=== PATIENT | female | born 1990 | race American Indian/Alaskan Native ===

== ENCOUNTER 2016-10-31 15:34 | Emergency (ER) | payer SELFPAY ==
[2016-10-31 16:17] VITALS: BP 135/92
--- NOTE | 2016-10-31 21:26 | Emergency Department Report ---
ED General Adult HPI - General Chief complaint: Urogenital-Female Stated complaint: VAGINAL PAIN Time Seen by Provider: 10/31/16 19:50 Source: patient Mode of arrival: Ambulatory Limitations: No Limitations - History of Present Illness Initial comments: PT c/o bump to vagina that she noticed today. PT states she has had an intermittent pain to the right side of her vagina x 1 week. PT states she shaved 1 week ago and has had previous ingrown hairs but none in this location. PT states the bump is on the R side of her vagina. PT states she is not concerned for STD. MD Complaint: abscess Onset/Timin -: Gradual, week(s) Location: genitals Quality: other (tender ) Consistency: constant Improves with: none Worsens with: other (palpation ) Associated Symptoms: denies: fever/chills - Related Data Previous Rx's Medication Instructions Recorded Last Taken Type Cephalexin [Keflex] 500 mg PO Q6HR #28 capsule 10/31/16 Unknown Rx Sulfamethoxazole/Trimethoprim 1 each PO BID #14 tablet 10/31/16 Unknown Rx [Bactrim DS TAB] traMADol [Ultram] 50 mg PO Q6HR PRN #12 tablet 10/31/16 Unknown Rx Allergies Allergy/AdvReac Type Severity Reaction Status Date / Time ibuprofen [From Motrin] Allergy Swelling Verified 02/29/16 18:07 aspirin AdvReac Swelling Verified 02/29/16 18:07 ED Review of Systems ROS: Stated complaint: VAGINAL PAIN Other details as noted in HPI Comment: All other systems reviewed and negative Constitutional: denies: chills, fever Gastrointestinal: nausea. denies: abdominal pain, vomiting Genitourinary: denies: dysuria, hematuria, discharge, abnormal menses Skin: other (lump near vagina ) ED Past Medical Hx - Past Medical History Previous Medical History?: No Additional medical history: Miscarriage x 2 - Surgical History Past Surgical History?: No - Social History Smoking Status: Current Every Day Smoker Substance Use Type: None - Medications Home Medications: Home Medications Medication Instructions Recorded Confirmed Last Taken Type Cephalexin [Keflex] 500 mg PO Q6HR #28 capsule 10/31/16 Unknown Rx Sulfamethoxazole/Trimethoprim 1 each PO BID #14 tablet 10/31/16 Unknown Rx [Bactrim DS TAB] traMADol [Ultram] 50 mg PO Q6HR PRN #12 tablet 10/31/16 Unknown Rx ED Physical Exam - General Limitations: No Limitations General appearance: alert, in no apparent distress - Head Head exam: Present: atraumatic, normocephalic - Eye Eye exam: Present: normal appearance. Absent: conjunctival injection - ENT ENT exam: Present: normal exam, normal external ear exam - Neck Neck exam: Present: normal inspection, full ROM - Respiratory Respiratory exam: Present: normal lung sounds bilaterally. Absent: respiratory distress - Cardiovascular Cardiovascular Exam: Present: regular rate, normal rhythm - GI/Abdominal GI/Abdominal exam: Present: soft, normal bowel sounds. Absent: tenderness - External exam: Present: swelling, other (female RN at bedside. PT has small firm abscess to R exteral genitalia. less than 1 cm. Possible mild enlargement of bartholin's gland on R side, however, site is not tender.). Absent: lesions - Extremities Exam Extremities exam: Present: normal inspection, full ROM - Back Exam Back exam: Present: normal inspection, full ROM. Absent: tenderness, CVA tenderness (R), CVA tenderness (L), muscle spasm - Neurological Exam Neurological exam: Present: alert, oriented X3 - Psychiatric Psychiatric exam: Present: normal affect, normal mood - Skin Skin exam: Present: warm, dry, intact, normal color ED Course Vital Signs 10/31/16 16:14 Temperature 98.3 F Pulse Rate 75 Respiratory 18 Rate Blood Pressure 135/92 O2 Sat by Pulse 100 Oximetry - Reevaluation(s) Reevaluation #1: 10/31/16 21:28 PT aware that abscess is not ready for drainage. PT given strict home care instructions. PT verbalizes understanding. - Pulse Oximetry Interpretation Digit-Finger Initial Pulse Oximetry Readin Actions Taken: none ED Medical Decision Making - Differential Diagnosis cyst, abscess Critical care attestation.: If time is entered above; I have spent that time in minutes in the direct care of this critically ill patient, excluding procedure time. ED Disposition Clinical Impression: Abscess Disposition: DISCHARGED TO HOME OR SELFCARE Is pt being admited?: No Does the pt Need Aspirin: No Condition: Stable Instructions: Abscess (ED), Bartholin Cyst (ED) Additional Instructions: Warm compresses Return in 2 days for recheck No driving or ETOH if you are needing to take Ultram for your pain Prescriptions: Cephalexin [Keflex] 500 mg PO Q6HR #28 capsule Sulfamethoxazole/Trimethoprim [Bactrim DS TAB] 1 each PO BID #14 tablet traMADol [Ultram] 50 mg PO Q6HR PRN #12 tablet PRN Reason: Pain Referrals: PRIMARY CARE,MD [Primary Care Provider] - 3-5 Days Forms: Work/School Release Form(ED) Time of Disposition: 21:29
== END 2016-10-31 21:35 | disposition home or self-care (01) ==
LOC: ED 15:34
DX: N76.0 Acute vaginitis (principal); F17.200 Nicotine dependence, unspecified, uncomplicated
CPT/HCPCS: 99282

== ENCOUNTER 2017-01-16 08:58 | Emergency (ER) | payer SELFPAY ==
[2017-01-16 09:11] VITALS: BP 142/86
[2017-01-16 09:47] LABS: Basophils % (Auto) 0.8 % (0.0-1.8); Eosinophils % (Auto) 9.5 % (0.0-4.3); Hematocrit 37.3 % (30.3-42.9); Hemoglobin 12.5 gm/dl (10.1-14.3); Mean Corpuscular HGB Conc 34 % (30-34); Mean Corpuscular Hemoglobin 28 pg (28-32); Mean Corpuscular Volume 84 fl (79-97); Platelet Count 265 K/mm3 (140-440); Red Blood Count 4.42 M/mm3 (3.65-5.03); Red Cell Distribution Width 13.8 % (13.2-15.2); White Blood Count 5.7 K/mm3 (4.5-11.0)
[2017-01-16 09:59] LABS: Bilirubin,Urine NEG (Negative); Blood,Urine NEG (Negative); Ketones,Urine NEG (Negative); Leukocyte Esterase,Urine NEG (Negative); Mucus,Urine FEW /HPF; Nitrite,Urine NEG (Negative); Protein,Urine <15 mg/dL mg/dL (Negative); RBC,Urine < 1.0 /HPF (0.0-6.0); Urobilinogen,Urine < 2.0 mg/dL (<2.0); WBC,Urine < 1.0 /HPF (0.0-6.0)
--- NOTE | 2017-01-16 11:24 | Ultrasound Report ---
Pelvic and transvaginal sonography: History: Lower pelvic pain. . Findings: Uterus measures 8.8 x 4.3 x 4 cm. Endometrial thickness 12 mm. No intrauterine gestation. Right ovary 2.6 x 1.7 x 2.5 cm. Cyst in the right ovary measures 1.7 cm. Left ovary 2 x 1.1 x 2 cm. No mass. There is free fluid noted in the cul-de-sac. Impression: No intrauterine gestation. Findings as detailed above.
== END 2017-01-16 15:51 | disposition left against medical advice (07) ==
LOC: ED 08:58
DX: R10.2 Pelvic and perineal pain (principal); Z53.21 Procedure and treatment not carried out due to patient leaving prior to being seen by health care provider
CPT/HCPCS: 36415; 76801; 76817; 81001; 84702; 85025

== ENCOUNTER 2017-06-12 05:22 | Emergency (ER) | payer SELFPAY ==
[2017-06-12 05:33] VITALS: BP 136/89
[2017-06-12] MEDS ORDERED: ZOFRAN IM ONE (05:35)
[2017-06-12 06:12] LABS: Hematocrit 41.4 % (30.3-42.9); Hemoglobin 13.6 gm/dl (10.1-14.3); Mean Corpuscular HGB Conc 33 % (30-34); Mean Corpuscular Hemoglobin 28 pg (28-32); Mean Corpuscular Volume 85 fl (79-97); Platelet Count 288 K/mm3 (140-440); Red Cell Distribution Width 13.4 % (13.2-15.2); White Blood Count 7.4 K/mm3 (4.5-11.0)
[2017-06-12 06:33] LABS: Basophils % (Auto) 0.2 % (0.0-1.8); Diff Status Complete
[2017-06-12 06:46] LABS: Alanine Aminotransferase 10 units/L (7-56); Albumin 4.4 g/dL (3.9-5); Albumin/Globulin Ratio 1.3 %; Alkaline Phosphatase 54 units/L (35-129); Anion Gap 18 mmol/L; BUN/Creatinine Ratio 14; Blood Urea Nitrogen 10 mg/dL (7-17); Calcium 9.2 mg/dL (8.4-10.2); Carbon Dioxide 24 mmol/L (22-30); Chloride 101.9 mmol/L (98-107); Glucose 109 mg/dL (65-100); Lipase 20 units/L (13-60); Sodium 140 mmol/L (137-145); Total Protein 7.7 g/dL (6.3-8.2)
[2017-06-12 06:53] LABS: Bacteria,Urine 1+ /HPF (Negative); Bilirubin,Urine NEG (Negative); Blood,Urine LG (Negative); Ketones,Urine TR mg/dL (Negative); Leukocyte Esterase,Urine NEG (Negative); Mucus,Urine 2+ /HPF; Nitrite,Urine NEG (Negative); Urobilinogen,Urine < 2.0 mg/dL (<2.0)
== END 2017-06-12 06:00 | disposition left against medical advice (07) ==
LOC: ED 05:22
DX: R11.2 Nausea with vomiting, unspecified (principal); Z53.21 Procedure and treatment not carried out due to patient leaving prior to being seen by health care provider
CPT/HCPCS: 36415; 80053; 81001; 83690; 84703; 85025; J2405

== ENCOUNTER 2017-10-14 17:46 | Emergency (ER) | payer OTHER ==
[2017-10-14 18:05] VITALS: BP 143/88
--- NOTE | 2017-10-14 21:19 | Emergency Department Report ---
ED Shortness of Breath HPI - General Chief Complaint: Dyspnea/Respdistress Stated Complaint: CHEST TIGHTNESS Time Seen by Provider: 10/14/17 20:51 Source: patient Mode of arrival: Ambulatory Limitations: No Limitations - History of Present Illness Initial Comments: Patient is a 27-year-old female who is presenting with shortness of breath. Patient states last night she couldn't sleep because she was feeling short of breath with palpitations. Patient did not check her pulse at that time. Patient states she has a very mild shortness of breath currently symptoms are starting to subside. Patient denies any cough or fevers nausea vomiting GERD symptoms diarrhea chest pain at this time. Patient states she does have a history of anxiety. - Related Data Previous Rx's Medication Instructions Recorded Last Taken Type Amoxicillin/K Clav Tab [Augmentin 1 tab PO Q12HR #20 tab 05/26/17 Unknown Rx 875 mg] ALPRAZolam [Xanax TAB] 0.25 mg PO BID PRN #6 tab 10/14/17 Unknown Rx Allergies Allergy/AdvReac Type Severity Reaction Status Date / Time ibuprofen [From Motrin] Allergy Swelling Verified 01/16/17 09:04 aspirin AdvReac Swelling Verified 01/16/17 09:04 ED Review of Systems ROS: Stated complaint: CHEST TIGHTNESS Other details as noted in HPI Comment: All other systems reviewed and negative ED Past Medical Hx - Past Medical History Previous Medical History?: Yes Additional medical history: Miscarriage x 2 - Surgical History Past Surgical History?: Yes Additional Surgical History: ectopic - Social History Smoking Status: Current Every Day Smoker Substance Use Type: Alcohol, Non Opiate Pain - Medications Home Medications: Home Medications Medication Instructions Recorded Confirmed Last Taken Type Amoxicillin/K Clav Tab [Augmentin 1 tab PO Q12HR #20 tab 05/26/17 Unknown Rx 875 mg] ALPRAZolam [Xanax TAB] 0.25 mg PO BID PRN #6 tab 10/14/17 Unknown Rx ED Physical Exam - General Limitations: No Limitations General appearance: alert, in no apparent distress - Head Head exam: Present: atraumatic, normocephalic - Eye Eye exam: Present: normal appearance - ENT ENT exam: Present: mucous membranes moist - Neck Neck exam: Present: normal inspection - Respiratory Respiratory exam: Present: normal lung sounds bilaterally. Absent: respiratory distress, wheezes, rales, rhonchi - Cardiovascular Cardiovascular Exam: Present: regular rate, normal rhythm. Absent: systolic murmur, diastolic murmur, rubs, gallop - GI/Abdominal GI/Abdominal exam: Present: soft, normal bowel sounds. Absent: distended, tenderness, guarding, rebound - Extremities Exam Extremities exam: Present: normal inspection - Back Exam Back exam: Present: normal inspection - Neurological Exam Neurological exam: Present: alert, oriented X3 - Psychiatric Psychiatric exam: Present: normal affect, normal mood - Skin Skin exam: Present: warm, dry, intact, normal color. Absent: rash ED Course Vital Signs 10/14/17 17:58 Temperature 99.2 F Pulse Rate 86 Respiratory 18 Rate Blood Pressure 143/88 O2 Sat by Pulse 100 Oximetry ED Medical Decision Making - EKG Data -: EKG Interpreted by Me EKG shows normal: sinus rhythm, axis, intervals, QRS complexes, ST-T waves Rate: normal - EKG Data Interpretation: normal EKG - Medical Decision Making Patient is a 27-year-old Female who states that she was having palpitations shortness of breath last night. Patient will do believe is having a mild anxiety attack. Patient states she was up all night and couldn't sleep. Patient's EKG is very normal and patient will be discharged home at this time with a couple pills of Xanax. Critical care attestation.: If time is entered above; I have spent that time in minutes in the direct care of this critically ill patient, excluding procedure time. ED Disposition Clinical Impression: Anxiety reaction Disposition: DC-01 TO HOME OR SELFCARE Is pt being admited?: No Does the pt Need Aspirin: No Condition: Stable Prescriptions: ALPRAZolam [Xanax TAB] 0.25 mg PO BID PRN #6 tab PRN Reason: Anxiety Referrals: PRIMARY CARE, [Primary Care Provider] - 3-5 Days
== END 2017-10-14 21:23 | disposition home or self-care (01) ==
LOC: ED 17:46
DX: F41.9 Anxiety disorder, unspecified (principal); F17.200 Nicotine dependence, unspecified, uncomplicated
CPT/HCPCS: 93005; 93010; 99282

== ENCOUNTER 2018-04-29 20:55 | Emergency (ER) | payer OTHER ==
[2018-04-29 21:28] LABS: Basophils # (Auto) 0.1 K/mm3 (0.0-0.1); Eosinophils # (Auto) 0.5 K/mm3 (0.0-0.4); Eosinophils % (Auto) 7.7 % (0.0-4.3); Hematocrit 37.9 % (30.3-42.9); Hemoglobin 13.2 gm/dl (10.1-14.3); Lymphocytes % (Auto) 29.2 % (13.4-35.0); Mean Corpuscular HGB Conc 35 % (30-34); Mean Corpuscular Hemoglobin 29 pg (28-32); Mean Corpuscular Volume 84 fl (79-97); Monocytes # (Auto) 0.5 K/mm3 (0.0-0.8); Monocytes % (Auto) 7.2 % (0.0-7.3); Platelet Count 277 K/mm3 (140-440); Red Blood Count 4.52 M/mm3 (3.65-5.03); Red Cell Distribution Width 13.5 % (13.2-15.2)
[2018-04-29 21:49] LABS: Alanine Aminotransferase 11 units/L (7-56); Albumin 4.3 g/dL (3.9-5); BUN/Creatinine Ratio 16; Blood Urea Nitrogen 11 mg/dL (7-17); Calcium 9.4 mg/dL (8.4-10.2); Hemolysis Index 4
[2018-04-29 22:12] LABS: Bilirubin,Urine NEG (Negative); Blood,Urine NEG (Negative); Color,Urine Yellow (Yellow); Mucus,Urine 3+ /HPF; Protein,Urine <15 mg/dL mg/dL (Negative); Urobilinogen,Urine < 2.0 mg/dL (<2.0)
[2018-04-30 04:35] VITALS: BP 127/84
[2018-04-30] MEDS ORDERED: ULTRAM PO ONE (04:52)
--- NOTE | 2018-04-30 05:56 | Emergency Department Report ---
HPI - General Chief Complaint: Abdominal Pain Time Seen by Provider: 04/30/18 04:51 - HPI HPI: The patient is a 27-year-old female who presents for evaluation of abdominal pain and back pain. The patient reports bilateral lower abdominal pain and back pain for the past 4 days. She states that her pain is currently mild in severity, crampy in quality, exacerbated with movement of the lower back. The patient denies fever, chills, night sweats, some to the abdomen and back, paresthesias, motor deficit in the legs, vomiting, diarrhea, blood in the stool , dark tarry stool, dysuria, hematuria, flank pain, genital discharge, inability to pass flatus. ED Past Medical Hx - Past Medical History Previous Medical History?: No Additional medical history: Miscarriage x 2 - Surgical History Past Surgical History?: Yes Additional Surgical History: ectopic - Social History Smoking Status: Current Every Day Smoker Substance Use Type: None - Medications Home Medications: Home Medications Medication Instructions Recorded Confirmed Last Taken Type Amoxicillin/K Clav Tab [Augmentin 1 tab PO Q12HR #20 tab 05/26/17 Unknown Rx 875 mg] ALPRAZolam [Xanax TAB] 0.25 mg PO BID PRN #6 tab 10/14/17 Unknown Rx HYDROcodone/APAP 5-325 [[place] 1 each PO Q6HR PRN #14 tablet 04/30/18 Unknown Rx 5/325] ED Review of Systems ROS: Stated complaint: ABDOMINAL PAIN/LOWER BACK PAIN Other details as noted in HPI Constitutional: denies: fever ENT: denies: throat or neck pain Respiratory: denies: cough, shortness of breath Cardiovascular: denies: chest pain Endocrine: denies unexplained weight loss or gain Gastrointestinal: reports: abdominal pain, nausea Genitourinary: denies: dysuria Musculoskeletal: reports back pain denies: leg swelling Skin: denies: rash Neurological: denies: headache Hematological/Lymphatic: denies: easy bleeding or easy bruising Psych: denies sadness or hopelessness Physical Exam - Physical Exam Vital Signs: Vital Signs 04/29/18 04/30/18 21:05 04:33 Temperature 99.3 F 98.1 F Pulse Rate 109 H 78 Respiratory 28 H 16 Rate Blood Pressure 142/90 Blood Pressure 127/84 [Left] O2 Sat by Pulse 95 100 Oximetry Physical Exam: General: well-nourished, well-developed, no acute distress Head: Normocephalic, atraumatic Eyes: normal sclera ENT: Mucous membranes are pale and dry Neck: No neck stiffness, no cervical adenopathy Respiratory: Breath sounds equal bilaterally, no wheezing, rales, or rhonchi Cardio: S1 and S2 present, no murmurs, rubs, gallops, capillary refill is delayed Abdomen: Normoactive bowel sounds, soft abdomen, no rigidity, no guarding or rebound tenderness Chest WALL/Back: No tenderness to palpation of the chest wall, no CVA tenderness with percussion Musc: No pitting edema Skin: No rash Neuro: no facial drooping, normal speech Psych: Normal affect ED Course Vital Signs 04/29/18 04/30/18 21:05 04:33 Temperature 99.3 F 98.1 F Pulse Rate 109 H 78 Respiratory 28 H 16 Rate Blood Pressure 142/90 Blood Pressure 127/84 [Left] O2 Sat by Pulse 95 100 Oximetry ED Medical Decision Making - Lab Data Result diagrams: 04/29/18 21:13 04/29/18 21:13 - Medical Decision Making The patient was seen and examined by myself. The patient is placed on a fishing game warden and continuous pulse ox. On initial evaluation, the patient was found to be in no distress. Evaluation orders are placed. The patient given a tablet Tramadol for pain. The patient declined IV normal saline fluid bolus for treatment of her dehydration. Lab results were non-concerning including WBC , hemoglobin, hematocrit, electrolytes, renal function, negative test , and urinalysis. The patient was reevaluated and reported that their symptoms were markedly improved. The patient is stable for discharge with outpatient follow-up. The patient is given follow-up and return instructions. The patient expressed understanding and agreed with the plan. The patient is discharged in stable condition. Critical care attestation.: If time is entered above; I have spent that time in minutes in the direct care of this critically ill patient, excluding procedure time. ED Disposition Clinical Impression: Acute bilateral low back pain without sciatica, Acute bilateral lower abdominal pain Disposition: TO HOME OR SELFCARE Is pt being admited?: No Does the pt Need Aspirin: No Condition: Stable Instructions: Abdominal Pain (ED), Acute Low Back Pain (ED), Low Back Strain ( ED) Referrals: PRIMARY CARE, [Primary Care Provider] - 3-5 Days [facility] [Outside] - 3-5 Days Time of Disposition: 05:38
== END 2018-04-30 05:50 | disposition home or self-care (01) ==
LOC: ED 20:55
DX: M54.5 Low back pain (principal); R10.31 Right lower quadrant pain; R10.32 Left lower quadrant pain; F17.200 Nicotine dependence, unspecified, uncomplicated; Z88.6 Allergy status to analgesic agent
CPT/HCPCS: 36415; 80053; 81001; 84703; 85025; 99284

== ENCOUNTER 2018-09-28 22:49 | Emergency (ER) | payer MEDICAID, OTHER ==
[2018-09-29 00:15] VITALS: BP 139/80
[2018-09-29 02:24] LABS: Bilirubin,Urine Negative (Negative); Color,Urine Yellow (Yellow)
[2018-09-29 02:25] LABS: Blood,Urine Negative (Negative); Mucus,Urine Few /HPF; Protein,Urine <15 mg/dL mg/dL (Negative); Urobilinogen,Urine < 0.2 mg/dL (<2.0)
[2018-09-29] MEDS ORDERED: TYLENOL PO ONE (02:30)
--- NOTE | 2018-09-29 03:22 | Emergency Department Report ---
ED Female HPI - General Chief complaint: Back Pain/Injury Stated complaint: LOWER BACK PAIN EARLY PREGNACY Time Seen by Provider: 09/29/18 02:29 Source: patient Mode of arrival: Ambulatory Limitations: No Limitations - History of Present Illness Initial comments: Patient was 28-year-old emergency room female who presents for urinary frequency urgency. LMP 08/03/2018, had pos home test there is no vaginal bleeding no discharge no cramping, no fever chills, Complaint: dysuria Onset/Timin -: week(s) Radiation: L flank, R flank Severity: moderate Severity scale (0 -10): 4 Quality: aching Consistency: intermittent Improves with: none Worsens with: none, urination Are you Now?: Yes Last Menstrual Period: 08/03/18 EDC: 05/10/19 Associated Symptoms: denies other symptoms, dysuria - Related Data Sexually active: Yes : 2 Para: 0 A: 2 (misscarriage ) Previous Rx's Medication Instructions Recorded Last Taken Type Amoxicillin/K Clav Tab [Augmentin 1 tab PO Q12HR #20 tab 05/26/17 Unknown Rx 875 mg] ALPRAZolam [Xanax TAB] 0.25 mg PO BID PRN #6 tab 10/14/17 Unknown Rx HYDROcodone/APAP 5-325 [[place] 1 each PO Q6HR PRN #14 tablet 04/30/18 Unknown Rx 5/325] Acetaminophen [Tylenol] 650 mg PO QID PRN #30 capsule 09/29/18 Unknown Rx Nitrofurantoin [place]/M-Cryst 100 mg PO Q12HR 7 Days #14 capsule 09/29/18 Unknown Rx [Macrobid CAP] Allergies Allergy/AdvReac Type Severity Reaction Status Date / Time ibuprofen [From Motrin] Allergy Swelling Verified 01/16/17 09:04 aspirin AdvReac Swelling Verified 01/16/17 09:04 ED Review of Systems ROS: Stated complaint: LOWER BACK PAIN EARLY PREGNACY Other details as noted in HPI Constitutional: denies: chills, fever Eyes: denies: eye pain, eye discharge, vision change ENT: denies: ear pain, throat pain Respiratory: denies: cough, shortness of breath, wheezing Cardiovascular: denies: chest pain, palpitations Endocrine: no symptoms reported Gastrointestinal: denies: abdominal pain, nausea, vomiting, diarrhea Genitourinary: urgency, dysuria, frequency. denies: hematuria, discharge, abnormal menses, dyspareunia Musculoskeletal: back pain Skin: denies: rash, lesions Neurological: denies: headache, weakness, paresthesias Psychiatric: denies: anxiety, depression Hematological/Lymphatic: denies: easy bleeding, easy bruising ED Past Medical Hx - Past Medical History Previous Medical History?: No Additional medical history: Miscarriage x 2 - Surgical History Past Surgical History?: Yes Additional Surgical History: ectopic - Social History Smoking Status: Former Smoker Substance Use Type: None - Medications Home Medications: Home Medications Medication Instructions Recorded Confirmed Last Taken Type Amoxicillin/K Clav Tab [Augmentin 1 tab PO Q12HR #20 tab 05/26/17 Unknown Rx 875 mg] ALPRAZolam [Xanax TAB] 0.25 mg PO BID PRN #6 tab 10/14/17 Unknown Rx HYDROcodone/APAP 5-325 [[place] 1 each PO Q6HR PRN #14 tablet 04/30/18 Unknown Rx 5/325] Acetaminophen [Tylenol] 650 mg PO QID PRN #30 capsule 09/29/18 Unknown Rx Nitrofurantoin [place]/M-Cryst 100 mg PO Q12HR 7 Days #14 capsule 09/29/18 Unknown Rx [Macrobid CAP] ED Physical Exam - General Limitations: No Limitations General appearance: alert, in no apparent distress - Head Head exam: Present: atraumatic, normocephalic - Eye Eye exam: Present: normal appearance, PERRL, EOMI Pupils: Present: normal accommodation - ENT ENT exam: Present: normal orophraynx, mucous membranes moist - Neck Neck exam: Present: normal inspection, full ROM - Respiratory Respiratory exam: Present: normal lung sounds bilaterally. Absent: respiratory distress, wheezes, stridor - Cardiovascular Cardiovascular Exam: Present: regular rate, normal rhythm, normal heart sounds. Absent: systolic murmur, diastolic murmur, rubs, gallop - GI/Abdominal GI/Abdominal exam: Present: soft, normal bowel sounds. Absent: tenderness, bruit, hernia - Rectal Rectal exam: Present: deferred - Extremities Exam Extremities exam: Present: normal inspection, full ROM, normal capillary refill. Absent: tenderness - Back Exam Back exam: Present: normal inspection, full ROM. Absent: tenderness, CVA tenderness (R), CVA tenderness (L), muscle spasm, rash noted - Neurological Exam Neurological exam: Present: alert, oriented X3, CN II-XII intact, normal gait - Psychiatric Psychiatric exam: Present: normal affect, normal mood - Skin Skin exam: Present: warm, dry, intact, normal color. Absent: rash ED Course Vital Signs 09/29/18 00:12 Temperature 98.9 F Pulse Rate 79 Respiratory 18 Rate Blood Pressure 139/80 O2 Sat by Pulse 97 Oximetry ED Medical Decision Making - Lab Data Labs 09/29/18 09/29/18 01:14 02:51 HCG, Quant 3051 H Urine Color Yellow Urine Turbidity Clear Urine pH 6.0 Ur Specific [place] 1.016 Urine Protein <15 mg/dl Urine Glucose (UA) Negative Urine Ketones Negative Urine Blood Negative Urine Nitrite Negative Urine Bilirubin Negative Urine Urobilinogen < 0.2 Ur Leukocyte Esterase Negative Urine WBC (Auto) 1.0 Urine RBC (Auto) 1.0 U Epithel Cells (Auto) 1.0 Urine Mucus Few Critical care attestation.: If time is entered above; I have spent that time in minutes in the direct care of this critically ill patient, excluding procedure time. ED Disposition Clinical Impression: Urinary frequency Qualifiers: Weeks of gestation: 8 weeks Qualified Code(s): Z3A.08 - 8 weeks gestation of Disposition: -01 TO HOME OR SELFCARE Is pt being admited?: No Does the pt Need Aspirin: No Condition: Stable Instructions: (ED), Dysuria (ED) Prescriptions: Acetaminophen [Tylenol] 650 mg PO QID PRN #30 capsule PRN Reason: pain Nitrofurantoin [place]/M-Cryst [Macrobid CAP] 100 mg PO Q12HR 7 Days #14 capsule Referrals: ARIANA JESSICA MD [Staff Physician] - 3-5 Days Forms: Work/School Release Form(ED) Time of Disposition: 07:00
--- NOTE | 2018-09-29 07:32 | Ultrasound Report ---
PROCEDURE: US COMPLETE TRANSABDOMINAL < 14 WEEKS TECHNIQUE: Real-time transabdominal sonography of the uterus, placenta, amniotic fluid, adnexa, and fetus was performed with image documentation. Measurements were obtained to determine age/size. M-mode Doppler was used to document heartbeat. ADDITIONAL GESTATION: None. HISTORY: back pain pos preg COMPARISONS: None . FINDINGS: There is a probable early normal intrauterine gestation. There is a saclike structure measuring 4.6 m m corresponding to an estimated gestational age of 5 weeks 2 days. There is a yolk sac. There is no f etal pole. Placenta: Normal Amniotic fluid: Appropriate for gestational age. Cervix: Normal. Right Ovary: There is a 2.4 cm complex cyst. . Left Ovary: Normal . Estimated delivery date: 05/30/2019 . Uterus and adnexa: Normal. IMPRESSION: Early intrauterine gestation at 5 weeks and 2 days. At this time no pole or cardiac activity is identified. This document is electronically signed by Armand Laboy MD., September 29 2018 05:32:02 AM ET
--- NOTE | 2018-09-29 07:32 | Ultrasound Report ---
PROCEDURE: US COMPLETE TRANSABDOMINAL < 14 WEEKS TECHNIQUE: Real-time transvaginal sonography of the uterus, placenta, amniotic fluid, adnexa, and fe tus was performed with image documentation. Measurements were obtained to determine age/size. ADDITIONAL GESTATION: None. HISTORY: back pain pos preg COMPARISONS: None . FINDINGS: There is a probable early normal intrauterine gestation. There is a saclike structure measuring 4.6 m m corresponding to an estimated gestational age of 5 weeks 2 days. There is a yolk sac. There is no f etal pole. Placenta: Normal Amniotic fluid: Appropriate for gestational age. Cervix: Normal. Right Ovary: There is a 2.4 cm complex cyst. . Left Ovary: Normal . Estimated delivery date: 05/30/2019 . Uterus and adnexa: Normal. IMPRESSION: Early intrauterine gestation at 5 weeks and 2 days. At this time no pole or cardiac activity is identified. This document is electronically signed by Armand Laboy MD., September 29 2018 05:32:45 AM ET
== END 2018-09-29 05:30 | disposition home or self-care (01) ==
LOC: ED 22:49
DX: O23.41 Unspecified infection of urinary tract in pregnancy, first trimester (principal); Z3A.08 8 weeks gestation of pregnancy; Z88.5 Allergy status to narcotic agent; Z88.6 Allergy status to analgesic agent; Z87.891 Personal history of nicotine dependence
CPT/HCPCS: 36415; 76801; 76817; 81001; 84702; 99284

== ENCOUNTER 2018-11-23 05:33 | Emergency (ER) | payer MEDICAID ==
[2018-11-23 06:10] LABS: Basophils % (Auto) 0.3 % (0.0-1.8); Eosinophils # (Auto) 0.4 K/mm3 (0.0-0.4); Eosinophils % (Auto) 4.5 % (0.0-4.3); Hematocrit 36.8 % (30.3-42.9); Hemoglobin 12.3 gm/dl (10.1-14.3); Lymphocytes # (Auto) 1.4 K/mm3 (1.2-5.4); Lymphocytes % (Auto) 16.5 % (13.4-35.0); Mean Corpuscular HGB Conc 34 % (30-34); Mean Corpuscular Volume 86 fl (79-97); Monocytes # (Auto) 0.7 K/mm3 (0.0-0.8); Monocytes % (Auto) 8.1 % (0.0-7.3); Platelet Count 260 K/mm3 (140-440); Red Blood Count 4.29 M/mm3 (3.65-5.03); Red Cell Distribution Width 14.9 % (13.2-15.2)
[2018-11-23 06:13] LABS: Bilirubin,Urine NEG (Negative); Blood,Urine NEG (Negative); Color,Urine Yellow (Yellow); Hyaline Casts,Urine 1 /LPF; Mucus,Urine 1+ /HPF; Protein,Urine <15 mg/dL mg/dL (Negative); Urobilinogen,Urine < 2.0 mg/dL (<2.0)
[2018-11-23] MEDS ORDERED: TYLENOL PO ONE (07:31)
--- NOTE | 2018-11-23 07:56 | Emergency Department Report ---
ED HPI - General Chief complaint: Back Pain/Injury Stated complaint: BACK PAINS Time Seen by Provider: 11/23/18 07:00 Source: patient Mode of arrival: Ambulatory Limitations: No Limitations - History of Present Illness Initial comments: 28 YO OBESE FEMALE [id number] HERE WITH BACK PAIN PAIN IS BILATERAL NO VAG BLEED OR DC NO FEVER AMBULATORY AND NONTOXIC TAKING PO HAS HAD OBGYN CARE AND SEEN IN ER -: Gradual, week(s) Location: other Radiation: back Severity: mild Quality: aching Consistency: intermittent Improves with: rest Worsens with: movement Associated symptoms: denies other symptoms. denies: nausea/vomiting, vaginal bleeding, vaginal discharge, abdominal pain, dysuria, headache, vision changes, malaise, dysparuenia, rash, seizure, shortness of breath, syncope, weakness Vaginal bleeding: none :: Yes Number of weeks : 13 OB History - Previous Pregnancies: miscarriage, other (ECTOPIC) - Related Data : 3 Para: 0 Ab: 2 Previous Rx's Medication Instructions Recorded Last Taken Type Amoxicillin/K Clav Tab [Augmentin 1 tab PO Q12HR #20 tab 05/26/17 Unknown Rx 875 mg] ALPRAZolam [Xanax TAB] 0.25 mg PO BID PRN #6 tab 10/14/17 Unknown Rx HYDROcodone/APAP 5-325 [[place] 1 each PO Q6HR PRN #14 tablet 04/30/18 Unknown Rx 5/325] Acetaminophen [Tylenol] 650 mg PO QID PRN #30 capsule 09/29/18 Unknown Rx Nitrofurantoin [place]/M-Cryst 100 mg PO Q12HR 7 Days #14 capsule 09/29/18 Unknown Rx [Macrobid CAP] Allergies Allergy/AdvReac Type Severity Reaction Status Date / Time ibuprofen [From Motrin] Allergy Swelling Verified 01/16/17 09:04 aspirin AdvReac Swelling Verified 01/16/17 09:04 ED Review of Systems ROS: Stated complaint: BACK PAINS Other details as noted in HPI Comment: All other systems reviewed and negative Genitourinary: as per HPI. denies: urgency, dysuria, frequency, hematuria, discharge, abnormal menses, dyspareunia Musculoskeletal: as per HPI, back pain ED Past Medical Hx - Past Medical History Previous Medical History?: Yes Additional medical history: Miscarriage 1 AND ECTOPIC 1 - Surgical History Past Surgical History?: Yes Additional Surgical History: ectopic - Family History Family history: no significant - Social History Smoking Status: Never Smoker Substance Use Type: None - Medications Home Medications: Home Medications Medication Instructions Recorded Confirmed Last Taken Type Amoxicillin/K Clav Tab [Augmentin 1 tab PO Q12HR #20 tab 05/26/17 Unknown Rx 875 mg] ALPRAZolam [Xanax TAB] 0.25 mg PO BID PRN #6 tab 10/14/17 Unknown Rx HYDROcodone/APAP 5-325 [[place] 1 each PO Q6HR PRN #14 tablet 04/30/18 Unknown Rx 5/325] Acetaminophen [Tylenol] 650 mg PO QID PRN #30 capsule 09/29/18 Unknown Rx Nitrofurantoin [place]/M-Cryst 100 mg PO Q12HR 7 Days #14 capsule 09/29/18 Unknown Rx [Macrobid CAP] ED Physical Exam - General Limitations: No Limitations General appearance: alert, in no apparent distress - Head Head exam: Present: atraumatic, normocephalic - Eye Eye exam: Present: normal appearance, PERRL - ENT ENT exam: Present: mucous membranes moist - Neck Neck exam: Present: normal inspection, full ROM - Respiratory Respiratory exam: Present: normal lung sounds bilaterally - Cardiovascular Cardiovascular Exam: Present: regular rate - GI/Abdominal GI/Abdominal exam: Present: soft - Rectal Rectal exam: Present: deferred - Extremities Exam Extremities exam: Present: normal inspection, full ROM - Back Exam Back exam: Present: normal inspection, full ROM - Neurological Exam Neurological exam: Present: alert, oriented X3 - Psychiatric Psychiatric exam: Present: normal affect, normal mood - Skin Skin exam: Present: warm, dry ED Course Vital Signs 11/23/18 11/23/18 05:34 08:11 Temperature 98.7 F 98.0 F Pulse Rate 109 H 83 Respiratory 18 16 Rate Blood Pressure 149/95 Blood Pressure 133/85 [Left] O2 Sat by Pulse 99 98 Oximetry ED Medical Decision Making - Lab Data Result diagrams: 11/23/18 05:50 - Medical Decision Making NO DYSURIA NO CVA TENDERNESS NO FEVER NO FALL NO VAG BLEED NO VAG DISCHARGE TAKING PO HAS HAD OB CARE SEEN HERE IN ER PRIOR WITH SAME COMPLAINT HAS HAD NUMEROUS US 13 WEEKS WITH 20 POUND WEIGHT GAIN GOT UP THIS AM AND BACK HURT TOO MUCH TO GO TO WORK SHE CAME TO ER SHE SEES MYOBGYN WILL BE SENT THERE ON DC Lab Results 11/23/18 11/23/18 11/23/18 Range/Units 05:50 05:50 05:59 WBC 8.3 (4.5-11.0) K/mm3 RBC 4.29 (3.65-5.03) M/mm3 Hgb 12.3 (10.1-14.3) gm/dl Hct 36.8 (30.3-42.9) % MCV 86 (79-97) fl MCH 29 (28-32) pg MCHC 34 (30-34) % RDW 14.9 (13.2-15.2) % Plt Count 260 (140-440) K/mm3 Lymph % (Auto) 16.5 (13.4-35.0) % [place] % (Auto) 8.1 H (0.0-7.3) % Eos % (Auto) 4.5 H (0.0-4.3) % Baso % (Auto) 0.3 (0.0-1.8) % Lymph # 1.4 (1.2-5.4) K/mm3 [place] # 0.7 (0.0-0.8) K/mm3 Eos # 0.4 (0.0-0.4) K/mm3 Baso # 0.0 (0.0-0.1) K/mm3 Seg Neutrophils % 70.6 H (40.0-70.0) % Seg Neutrophils # 5.9 (1.8-7.7) K/mm3 HCG, Quant [id number] H (0-4) mIU/mL Urine Color Yellow (Yellow) Urine Turbidity Slightly-cloudy (Clear) Urine pH 6.0 (5.0-7.0) Ur Specific [place] 1.018 (1.003-1.030) Urine Protein <15 mg/dl (Negative) mg/dL Urine Glucose (UA) Neg (Negative) mg/dL Urine Ketones Neg (Negative) mg/dL Urine Blood Neg (Negative) Urine Nitrite Neg (Negative) Urine Bilirubin Neg (Negative) Urine Urobilinogen < 2.0 (<2.0) mg/dL Ur Leukocyte Esterase Neg (Negative) Urine WBC (Auto) 3.0 (0.0-6.0) /HPF Urine RBC (Auto) 3.0 (0.0-6.0) /HPF U Epithel Cells (Auto) 2.0 (0-13.0) /HPF Hyaline Casts 1 /LPF Urine Mucus 1+ /HPF Vital Signs 11/23/18 05:34 Temperature 98.7 F Pulse Rate 109 H Respiratory 18 Rate Blood Pressure 149/95 O2 Sat by Pulse 99 Oximetry - Differential Diagnosis RO UTI; RO AB Critical care attestation.: If time is entered above; I have spent that time in minutes in the direct care of this critically ill patient, excluding procedure time. ED Disposition Clinical Impression: , Back pain Disposition: DC-01 TO HOME OR SELFCARE Is pt being admited?: No Does the pt Need Aspirin: No Condition: Stable Additional Instructions: TAKE DAILY VITAMIN REST FOLLOW UP WITH OBGYN TODAY LET THEM KNOW YOU WERE SEEN HERE AND TOLD TO FOLLOW UP WITH THEM THIS AM THEY CAN SEE YOUR TEST RESULTS DIET WE DISCUSSED HYDRATE WELL WITH WATER TYLENOL FOR PAIN Referrals: GERMANIA HAWTHORNE MD [Primary Care Provider] - 3-5 Days Forms: Work/School Release Form Time of Disposition: 07:56
[2018-11-23 08:12] VITALS: BP 133/85
== END 2018-11-23 08:11 | disposition home or self-care (01) ==
LOC: ED 05:33
DX: O9A.211 Injury, poisoning and certain other consequences of external causes complicating pregnancy, first trimester (principal); M54.9 Dorsalgia, unspecified; Z3A.13 13 weeks gestation of pregnancy; Z88.5 Allergy status to narcotic agent; Z88.6 Allergy status to analgesic agent
CPT/HCPCS: 36415; 81001; 84702; 85025; 99283

== ENCOUNTER 2019-02-20 12:37 | Outpatient (CLI) | payer MEDICAID ==
[2019-02-20] MEDS ORDERED: LACTATED RINGERS 500 ML IV ONE (14:00)
[2019-02-20 14:12] LABS: Hematocrit 33.6 % (30.3-42.9); Hemoglobin 11.5 gm/dl (10.1-14.3); Mean Corpuscular HGB Conc 34 % (30-34); Mean Corpuscular Volume 83 fl (79-97); Platelet Count 252 K/mm3 (140-440); Red Blood Count 4.05 M/mm3 (3.65-5.03); Red Cell Distribution Width 15.5 % (13.2-15.2)
[2019-02-20 14:13] LABS: Bilirubin,Urine NEG (Negative); Blood,Urine NEG (Negative); Color,Urine Yellow (Yellow); Mucus,Urine FEW /HPF; Protein,Urine <15 mg/dL mg/dL (Negative); Urobilinogen,Urine < 2.0 mg/dL (<2.0)
[2019-02-20 14:20] LABS: Amphetamine Screen,Urine PRESUMPTIVE NEGATIVE; Benzodiazepines Screen,Urine PRESUMPTIVE NEGATIVE; Cannabinoid Screen,Urine PRESUMPTIVE NEGATIVE; Cocaine Screen,Urine PRESUMPTIVE NEGATIVE; Methadone Screen,Urine PRESUMPTIVE NEGATIVE; Opiate Screen,Urine PRESUMPTIVE NEGATIVE
[2019-02-20 14:38] LABS: Alanine Aminotransferase 12 units/L (7-56)
[2019-02-20 16:22] VITALS: BP 100/61
== END 2019-02-20 15:15 | disposition home or self-care (01) ==
LOC: TRG 12:37
PROVIDERS: ATTEND Obstetrics & Gynecology
DX: O26.892 Other specified pregnancy related conditions, second trimester (principal); R10.2 Pelvic and perineal pain; O47.02 False labor before 37 completed weeks of gestation, second trimester; O24.410 Gestational diabetes mellitus in pregnancy, diet controlled; O16.2 Unspecified maternal hypertension, second trimester; Z3A.26 26 weeks gestation of pregnancy
CPT/HCPCS: 36415; 59025; 80307; 81001; 82565; 83615; 84450; 84460; 84550; 85027; 96360; J7120; 96361